=== PATIENT | male | born 1995 | race Caucasian/White ===

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

== ENCOUNTER 2017-12-23 14:23 | Emergency (ER) | payer MEDICAID ==
[~2017-12-23] VITALS: Ht 170.2 cm; Wt 50.3 kg
[2017-12-23] MEDS ORDERED: IBUPROFEN 200 MG TABLET PO ONE (14:30)
[2017-12-23] MEDS ORDERED: IBUPROFEN 200 MG TABLET ONE (14:34)
[2017-12-23 14:53] LABS: MEAN CORPUSCULAR HEMOGLOBIN 31.5 pg (27.5-34.5); MEAN CORPUSCULAR HGB CONC 34.4 g/dL (33.2-36.2); MEAN CORPUSCULAR VOLUME 91.5 fL (81-97); MEAN PLATELET VOLUME 7.4 fL (7.4-10.4); PLATELET COUNT 278 x10^3/uL (130-400); RED CELL DISTRIBUTION WIDTH 13.9 % (9.4-14.8)
[2017-12-23 15:06] LABS: ALANINE AMINOTRANSFERASE 24 U/L (12-78); ANION GAP 9 mmol/L (5-15); CALCIUM 8.8 mg/dL (8.5-10.1); CHLORIDE 101 mmol/L (98-107); CREATININE 1.01 mg/dL (0.7-1.3)
[2017-12-23 15:08] LABS: ALKALINE PHOSPHATASE 148 U/L (45-117); BILIRUBIN,TOTAL 0.8 mg/dL (0.2-1.0); TOTAL PROTEIN 8.3 g/dL (6.4-8.2)
[2017-12-23 15:37] LABS: BASOPHILS # (AUTO) 0.03 x10^3/uL (0-0.3); BASOPHILS % (AUTO) 0 % (0-1); EOSINOPHILS # (AUTO) 0.02 x10^3/uL (0-0.8); EOSINOPHILS % (AUTO) 0 % (1-7); LYMPHOCYTES # (AUTO) 1.33 x10^3/uL (1-6.1); LYMPHOCYTES % (AUTO) 8 % (22-44); MD SCAN; MONOCYTES # (AUTO) 2.29 x10^3/uL (0-1.4); MONOCYTES % (AUTO) 14 % (2-9); NEUTROPHILS # (AUTO) 12.58 x10^3/uL (1.8-8.0); NEUTROPHILS % (AUTO) 77 % (42-75)
[2017-12-23] MEDS ORDERED: KETOROLAC 30 MG/1 ML IVPush ONE (16:30)
[2017-12-23] MEDS ORDERED: DEXAMETHASONE 4 MG/ML, 1ML IVPush ONE (16:30)
[2017-12-23] MEDS ORDERED: SODIUM CHLORIDE 0.9% 1,000ML IVBOLUS ONE (16:30)
[2017-12-23] MEDS ORDERED: BICILLIN-LA 1,200,000 UNITS/2 ML IM ONE (16:30)
[2017-12-23] MEDS ORDERED: SODIUM CHLORIDE FLUSH 10ML SYR IVF ONE (16:30)
[2017-12-23] MEDS ORDERED: KETOROLAC 30 MG/1 ML ONE (16:34)
[2017-12-23] MEDS ORDERED: DEXAMETHASONE 4 MG/ML, 1ML ONE ×2 (16:34→16:35)
[2017-12-23 18:05] VITALS: BP 115/58
== END 2017-12-23 18:11 | disposition home or self-care (01) ==
LOC: ED 18:05
DX: J02.0 Streptococcal pharyngitis (principal); F17.200 Nicotine dependence, unspecified, uncomplicated
CPT/HCPCS: 36415; 80053; 85025; 87081; 87147; 87880; 96361; 96372; 96374; 96375; 99284; J0561; J1100; J1885; J7030

== ENCOUNTER 2019-03-13 18:52 | Emergency (ER) | payer MEDICAID ==
[~2019-03-13] VITALS: Ht 170.2 cm; Wt 74.8 kg
[2019-03-13 19:08] VITALS: BP 122/73
== END 2019-03-13 19:52 | disposition home or self-care (01) ==
LOC: ED 19:45
DX: K02.9 Dental caries, unspecified (principal); F17.200 Nicotine dependence, unspecified, uncomplicated; Z72.89 Other problems related to lifestyle
CPT/HCPCS: 99283